=== PATIENT | female | born 1990 | race Caucasian/White ===

== ENCOUNTER 2017-06-16 11:40 | Emergency (ER) | payer OTHER ==
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
[2017-06-16 19:42] VITALS: BP 122/72
== END 2017-06-16 16:48 | disposition home or self-care (01) ==
LOC: EEVIPCON 11:40
DX: T74.21XA Adult sexual abuse, confirmed, initial encounter (principal); F17.200 Nicotine dependence, unspecified, uncomplicated; Y07.9 Unspecified perpetrator of maltreatment and neglect; Y92.810 Car as the place of occurrence of the external cause

== ENCOUNTER 2017-06-17 15:28 | Emergency (ER) | payer SELFPAY ==
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
[2017-06-17] MEDS ORDERED: IOPAMIDOL (ISOVUE 370) 100 ML BTL IV ONE (18:17)
[2017-06-17 19:15] VITALS: BP 121/83
== END 2017-06-17 19:15 | disposition home or self-care (01) ==
DX: T71.1 Asphyxiation due to mechanical threat to breathing (principal); F17.200 Nicotine dependence, unspecified, uncomplicated; T74.21XD Adult sexual abuse, confirmed, subsequent encounter
CPT/HCPCS: 82947-QW; Q9967